=== PATIENT | female | born 1980 | race American Indian/Alaskan Native ===

== ENCOUNTER 2019-10-17 11:02 | Emergency (ER) | payer SELFPAY ==
[2019-10-17 11:30] VITALS: BP 118/79
[2019-10-17] MEDS ORDERED: ACETAMINOPHEN 325 MG TAB PO PRN (11:53)
[2019-10-17] MEDS ORDERED: ONDANSETRON 4 MG ODT TAB PO PRN (11:53)
--- NOTE | 2019-10-17 11:55 | Emergency Department Report ---
Chief Complaint: Abdominal Pain Stated Complaint: 11 WKS /ABD SEVERE PAIN - HPI History of Present Illness: 39 y/o female distant history of appendectomy, thinks shes 11 weeks , no prenantl care, p/w lower abd pain cramping nausea labs ua ultrasound apap, and zofran reassess ft Vital Signs 10/17/19 11:14 Temperature 98.2 F Pulse Rate 92 H Respiratory 20 Rate Blood Pressure 118/79 O2 Sat by Pulse 99 Oximetry - Exam Vital Signs: Vital Signs 10/17/19 11:14 Temperature 98.2 F Pulse Rate 92 H Respiratory 20 Rate Blood Pressure 118/79 O2 Sat by Pulse 99 Oximetry MSE screening note: Focused history and physical exam performed. Due to findings the following was ordered: ED Disposition for MSE Condition: Stable Instructions: Abdominal Pain (ED)
[2019-10-17 12:42] LABS: Basophils # (Auto) 0.1 K/mm3 (0.0-0.1); Eosinophils # (Auto) 0.1 K/mm3 (0.0-0.4); Eosinophils % (Auto) 1.4 % (0.0-4.3); Hematocrit 38.9 % (30.3-42.9); Hemoglobin 13.5 gm/dl (10.1-14.3); Mean Corpuscular HGB Conc 35 % (30-34); Mean Corpuscular Volume 96 fl (79-97); Monocytes # (Auto) 0.5 K/mm3 (0.0-0.8); Monocytes % (Auto) 7.3 % (0.0-7.3); Platelet Count 306 K/mm3 (140-440); Red Blood Count 4.05 M/mm3 (3.65-5.03); Red Cell Distribution Width 12.5 % (13.2-15.2)
[2019-10-17 13:12] LABS: Bilirubin,Urine NEG (Negative); Blood,Urine NEG (Negative); Color,Urine Yellow (Yellow); Protein,Urine <15 mg/dL mg/dL (Negative); Urobilinogen,Urine < 2.0 mg/dL (<2.0)
[2019-10-17 13:15] LABS: Albumin 4.1 g/dL (3.9-5); BUN/Creatinine Ratio 8; Blood Urea Nitrogen 4 mg/dL (7-17); Calcium 10.1 mg/dL (8.4-10.2); Hemolysis Index 96
--- NOTE | 2019-10-17 13:23 | Ultrasound Report ---
ULTRASOUND OBSTETRIC INDICATION: Lower abdominal pain. Estimated clinical age of 10 weeks, 1 day. TECHNIQUE: Transabdominal and Transvaginal. COMPARISON: None available. FINDINGS: GESTATIONAL SAC: Well-defined oval shape and intrauterine in location. YOLK SAC: No significant abnormality. EMBRYO/FETUS: No significant abnormality. - [place]-Rump Length = 3.88 cm = 10 weeks, 5 day(s). - Heart Rate = 164 beats per minute. ADNEXA: The left ovary is unremarkable. A right ovarian cyst measures 2.9 x 1.7 cm. FREE FLUID: None. ADDITIONAL FINDINGS: There is a small area of probable subchorionic hemorrhage measuring up to 1.7 cm . A probable intramural fibroid located along the uterine body measures 1.7 x 1.1 cm. IMPRESSION: 1. Single, living intrauterine with estimated sonographic age of 10 weeks, 5 day(s). 2. Probable small area of subchorionic hemorrhage as above. 3. Additional findings as above. Signer Name: Carlos Nguyen MD Signed: 10/17/2019 1:19 PM Workstation Name: [id number]
--- NOTE | 2019-10-17 13:23 | Ultrasound Report ---
ULTRASOUND OBSTETRIC INDICATION: Lower abdominal pain. Estimated clinical age of 10 weeks, 1 day. TECHNIQUE: Transabdominal and Transvaginal. COMPARISON: None available. FINDINGS: GESTATIONAL SAC: Well-defined oval shape and intrauterine in location. YOLK SAC: No significant abnormality. EMBRYO/FETUS: No significant abnormality. - [place]-Rump Length = 3.88 cm = 10 weeks, 5 day(s). - Heart Rate = 164 beats per minute. ADNEXA: The left ovary is unremarkable. A right ovarian cyst measures 2.9 x 1.7 cm. FREE FLUID: None. ADDITIONAL FINDINGS: There is a small area of probable subchorionic hemorrhage measuring up to 1.7 cm . A probable intramural fibroid located along the uterine body measures 1.7 x 1.1 cm. IMPRESSION: 1. Single, living intrauterine with estimated sonographic age of 10 weeks, 5 day(s). 2. Probable small area of subchorionic hemorrhage as above. 3. Additional findings as above. Signer Name: Carlos Nguyen MD Signed: 10/17/2019 1:19 PM Workstation Name: [id number]
[2019-10-17 13:24] LABS: Mucus,Urine Rare /HPF
[2019-10-17 13:27] LABS: Alanine Aminotransferase 13 units/L (7-56)
[2019-10-17] MEDS ORDERED: SODIUM CHLORIDE 0.9% 1000 ML 1,000 ML IV ONE (16:17)
--- NOTE | 2019-10-17 17:34 | Emergency Department Report ---
ED General Adult HPI - General Chief complaint: Abdominal Pain Stated complaint: 11 WKS /ABD SEVERE PAIN Time Seen by Provider: 10/17/19 16:07 Source: patient Mode of arrival: Wheelchair Limitations: No Limitations - History of Present Illness Initial comments: patient is a 39-year-old female presents emergency room with complaints of suprapubic abdominal pain that began 2 days ago. She has associated nausea and vomiting. She states that she has not been able tolerate by mouth intake. Patient is currently . She has not seen an [facility]. She has not had her confirmed or received care. She denies any fever, vaginal discharge, vaginal bleeding, urinary symptoms, diarrhea. she has not been taking any nausea medication. she denies any PMHx. she denies any allergies to meds. [facility] August 07, 2020. /P:3/A:3 - Related Data Previous Rx's Medication Instructions Recorded Last Taken Type Acetaminophen [Tylenol] 650 mg PO Q8HR PRN #20 capsule 10/17/19 Unknown Rx Ondansetron [Zofran Odt] 4 mg PO Q8HR PRN #14 tab.rapdis 10/17/19 Unknown Rx Allergies Allergy/AdvReac Type Severity Reaction Status Date / Time No Known Allergies Allergy Unverified 10/17/19 11:07 ED Review of Systems ROS: Stated complaint: 11 WKS /ABD SEVERE PAIN Other details as noted in HPI Comment: All other systems reviewed and negative ED Past Medical Hx - Past Medical History Previous Medical History?: No - Surgical History Past Surgical History?: No - Social History Smoking Status: Never Smoker Substance Use Type: Alcohol - Medications Home Medications: Home Medications Medication Instructions Recorded Confirmed Last Taken Type Acetaminophen [Tylenol] 650 mg PO Q8HR PRN #20 capsule 10/17/19 Unknown Rx Ondansetron [Zofran Odt] 4 mg PO Q8HR PRN #14 tab.rapdis 10/17/19 Unknown Rx ED Physical Exam - General Limitations: No Limitations General appearance: alert, in no apparent distress - Head Head exam: Present: atraumatic, normocephalic - Eye Eye exam: Present: normal appearance - ENT ENT exam: Present: mucous membranes dry - Respiratory Respiratory exam: Present: normal lung sounds bilaterally. Absent: respiratory distress, wheezes, rales, rhonchi, stridor, chest wall tenderness, accessory muscle use, decreased breath sounds, prolonged expiratory - Cardiovascular Cardiovascular Exam: Present: regular rate, normal rhythm, normal heart sounds. Absent: systolic murmur, diastolic murmur, rubs, gallop - GI/Abdominal GI/Abdominal exam: Present: soft, normal bowel sounds. Absent: distended, tenderness, guarding, rebound, rigid - Back Exam Back exam: Absent: CVA tenderness (R), CVA tenderness (L) - Neurological Exam Neurological exam: Present: alert, oriented X3 - Psychiatric Psychiatric exam: Present: normal affect, normal mood - Skin Skin exam: Present: warm, dry, intact ED Course Vital Signs 10/17/19 10/17/19 11:14 19:10 Temperature 98.2 F Pulse Rate 92 H 85 Respiratory 20 16 Rate Blood Pressure 118/79 O2 Sat by Pulse 99 100 Oximetry ED Medical Decision Making - Lab Data Result diagrams: 10/17/19 12:01 10/17/19 12:01 Lab Results 10/17/19 10/17/19 10/17/19 Range/Units 12:01 12:01 12:01 WBC 6.3 (4.5-11.0) K/mm3 RBC 4.05 (3.65-5.03) M/mm3 Hgb 13.5 (10.1-14.3) gm/dl Hct 38.9 (30.3-42.9) % MCV 96 (79-97) fl MCH 33 H (28-32) pg MCHC 35 H (30-34) % RDW 12.5 L (13.2-15.2) % Plt Count 306 (140-440) K/mm3 Lymph % (Auto) 31.0 (13.4-35.0) % [place] % (Auto) 7.3 (0.0-7.3) % Eos % (Auto) 1.4 (0.0-4.3) % Baso % (Auto) 1.0 (0.0-1.8) % Lymph # 2.0 (1.2-5.4) K/mm3 [place] # 0.5 (0.0-0.8) K/mm3 Eos # 0.1 (0.0-0.4) K/mm3 Baso # 0.1 (0.0-0.1) K/mm3 Seg Neutrophils % 59.3 (40.0-70.0) % Seg Neutrophils # 3.8 (1.8-7.7) K/mm3 Sodium 129 L (137-145) mmol/L Potassium 4.2 (3.6-5.0) mmol/L Chloride 94.2 L (98-107) mmol/L Carbon Dioxide 21 L (22-30) mmol/L Anion Gap 18 mmol/L BUN 4 L (7-17) mg/dL Creatinine 0.5 L (0.7-1.2) mg/dL Estimated GFR > 60 ml/min BUN/Creatinine Ratio 8 % Glucose 100 (65-100) mg/dL Calcium 10.1 (8.4-10.2) mg/dL Magnesium 2.00 (1.7-2.3) mg/dL Total Bilirubin 0.50 (0.1-1.2) mg/dL AST 23 (5-40) units/L ALT 13 (7-56) units/L Alkaline Phosphatase 71 (35-129) units/L Total Creatine Kinase 70 (30-135) units/L Total Protein 8.2 (6.3-8.2) g/dL Albumin 4.1 (3.9-5) g/dL Albumin/Globulin Ratio 1.0 % HCG, Quant [id number] H (0-4) mIU/mL Urine Color (Yellow) Urine Turbidity (Clear) Urine pH (5.0-7.0) Ur Specific [place] (1.003-1.030) Urine Protein (Negative) mg/dL Urine Glucose (UA) (Negative) mg/dL Urine Ketones (Negative) mg/dL Urine Blood (Negative) Urine Nitrite (Negative) Urine Bilirubin (Negative) Urine Urobilinogen (<2.0) mg/dL Ur Leukocyte Esterase (Negative) Urine WBC (Auto) (0.0-6.0) /HPF Urine RBC (Auto) (0.0-6.0) /HPF U Epithel Cells (Auto) (0-13.0) /HPF Urine Mucus /HPF Blood Type Antibody Screen 10/17/19 10/17/19 Range/Units 12:02 12:36 WBC (4.5-11.0) K/mm3 RBC (3.65-5.03) M/mm3 Hgb (10.1-14.3) gm/dl Hct (30.3-42.9) % MCV (79-97) fl MCH (28-32) pg MCHC (30-34) % RDW (13.2-15.2) % Plt Count (140-440) K/mm3 Lymph % (Auto) (13.4-35.0) % [place] % (Auto) (0.0-7.3) % Eos % (Auto) (0.0-4.3) % Baso % (Auto) (0.0-1.8) % Lymph # (1.2-5.4) K/mm3 [place] # (0.0-0.8) K/mm3 Eos # (0.0-0.4) K/mm3 Baso # (0.0-0.1) K/mm3 Seg Neutrophils % (40.0-70.0) % Seg Neutrophils # (1.8-7.7) K/mm3 Sodium (137-145) mmol/L Potassium (3.6-5.0) mmol/L Chloride (98-107) mmol/L Carbon Dioxide (22-30) mmol/L Anion Gap mmol/L BUN (7-17) mg/dL Creatinine (0.7-1.2) mg/dL Estimated GFR ml/min BUN/Creatinine Ratio % Glucose (65-100) mg/dL Calcium (8.4-10.2) mg/dL Magnesium (1.7-2.3) mg/dL Total Bilirubin (0.1-1.2) mg/dL AST (5-40) units/L ALT (7-56) units/L Alkaline Phosphatase (35-129) units/L Total Creatine Kinase (30-135) units/L Total Protein (6.3-8.2) g/dL Albumin (3.9-5) g/dL Albumin/Globulin Ratio % HCG, Quant (0-4) mIU/mL Urine Color Yellow (Yellow) Urine Turbidity Clear (Clear) Urine pH 6.0 (5.0-7.0) Ur Specific [place] 1.019 (1.003-1.030) Urine Protein <15 mg/dl (Negative) mg/dL Urine Glucose (UA) Neg (Negative) mg/dL Urine Ketones Tr (Negative) mg/dL Urine Blood Neg (Negative) Urine Nitrite Neg (Negative) Urine Bilirubin Neg (Negative) Urine Urobilinogen < 2.0 (<2.0) mg/dL Ur Leukocyte Esterase Neg (Negative) Urine WBC (Auto) 2.0 (0.0-6.0) /HPF Urine RBC (Auto) 6.0 (0.0-6.0) /HPF U Epithel Cells (Auto) 5.0 (0-13.0) /HPF Urine Mucus Rare /HPF Blood Type B POSITIVE Antibody Screen Negative - Radiology Data Radiology results: report reviewed ULTRASOUND OBSTETRIC INDICATION: Lower abdominal pain. Estimated clinical age of 10 weeks, 1 day. TECHNIQUE: Transabdominal and Transvaginal. COMPARISON: None available. FINDINGS: GESTATIONAL SAC: Well-defined oval shape and intrauterine in location. YOLK SAC: No significant abnormality. EMBRYO/FETUS: No significant abnormality. - [place]-Rump Length = 3.88 cm = 10 weeks, 5 day(s). - Heart Rate = 164 beats per minute. ADNEXA: The left ovary is unremarkable. A right ovarian cyst measures 2.9 x 1.7 cm. FREE FLUID: None. ADDITIONAL FINDINGS: There is a small area of probable subchorionic hemorrhage measuring up to 1.7 cm. A probable intramural fibroid located along the uterine body measures 1.7 x 1.1 cm. IMPRESSION: 1. Single, living intrauterine with estimated sonographic age of 10 weeks, 5 day(s). 2. Probable small area of subchorionic hemorrhage as above. 3. Additional findings as above. Signer Name: Carlos Nguyen MD Signed: 10/17/2019 1:19 PM Workstation Name: [id number] Transcribed By: [place] Dictated By: Carlos Nguyen MD Electronically Authenticated By: Carlos Nguyen MD Signed Date/Time: 10/17/19 1319 DD/ 1315 TD/TT: - Medical Decision Making patient is a 39-year-old female presents emergency room with complaints of suprapubic abdominal pain that began 2 days ago. She has associated nausea and vomiting. She states that she has not been able tolerate by mouth intake. Patient is currently . She has not seen an [facility]. She has not had her confirmed or received care. She denies any fever, vaginal discharge, vaginal bleeding, urinary symptoms, diarrhea. she has not been taking any nausea medication. she denies any PMHx. she denies any allergies to meds. [facility] August 07, 2020. /P:3/A:3. vitals are normal. on exam: no abd TTP, no guarding, no rebound. CBC normal. hcg quant is [id number]. BMP shows evidence of dehydration. UA is normal. pt is Rh positive. US OB shows 1. Single, living intrauterine with estimated sonographic age of 10 weeks, 5 day(s). 2. Probable small area of subchorionic hemorrhage as above. 3. Additional findings as above. Patient given IV fluids, Zofran, Tylenol and symptoms improved and she was feeling much better. Patient was able to eat and drink while in the emergency department with no issues had no further episodes of nausea or vomiting. Discussed all results with patient. Advised patient that subchorionic hemorrhage and ovarian cyst would need to be monitored by an [facility]. Stressed the importance of patient following up with [facility] to receive care. pt given prescription for zofran and tylenol. advised pt please take medication as prescribed. Please take an [id number] tablet daily. Please follow-up with a [facility] in the next 2-3 days. Return to the emergency room immediately for any new or worsening symptoms. - Differential Diagnosis IUP, ectopic, subchorionic hemorrhage, ovarian cyst, molar Critical care attestation.: If time is entered above; I have spent that time in minutes in the direct care of this critically ill patient, excluding procedure time. ED Disposition Clinical Impression: Abdominal pain in Qualifiers: Trimester: first trimester Qualified Code(s): O26.891 - Other specified related conditions, first trimester Nausea and vomiting Qualifiers: Vomiting type: unspecified Vomiting Intractability: non-intractable Qualified Code(s): R11.2 - Nausea with vomiting, unspecified Subchorionic hemorrhage Qualifiers: Fetus number: single or unspecified fetus Trimester: first trimester Qualified Code(s): O41.8X10 - Other specified disorders of amniotic fluid and membranes, first trimester, not applicable or unspecified Ovarian cyst Qualifiers: Laterality: right Qualified Code(s): N83.201 - Unspecified ovarian cyst, right side Uterine fibroid Qualifiers: Uterine leiomyoma location: intramural Qualified Code(s): D25.1 - Intramural leiomyoma of uterus Disposition: DC-01 TO HOME OR SELFCARE Is pt being admited?: No Does the pt Need Aspirin: No Condition: Stable Instructions: Ovarian Cyst (ED), Uterine Fibroids (ED), Acute Nausea and Vomiting (ED), Abdominal Pain in (ED) Additional Instructions: please take medication as prescribed. Please take an [id number] tablet daily. Please follow-up with a [facility] in the next 2-3 days. [facility] room immediately for any new or worsening symptoms. Prescriptions: Acetaminophen [Tylenol] 650 mg PO Q8HR PRN #20 capsule PRN Reason: pain Ondansetron [Zofran Odt] 4 mg PO Q8HR PRN #14 tab.rapdis PRN Reason: Nausea And Vomiting Referrals: [facility] [Provider Group] - 2-3 Days [facility] [Provider Group] - 2-3 Days [facility] [Provider Group] - 2-3 Days [facility] [Outside] - 2-3 Days Time of Disposition: 18:27 Print Language: BULGARIAN
== END 2019-10-17 19:10 | disposition home or self-care (01) ==
LOC: ED 11:02
DX: O34.81 Maternal care for other abnormalities of pelvic organs, first trimester (principal); N83.201 Unspecified ovarian cyst, right side; O34.11 Maternal care for benign tumor of corpus uteri, first trimester; O41.8X90 Other specified disorders of amniotic fluid and membranes, unspecified trimester, not applicable or unspecified; O21.8 Other vomiting complicating pregnancy; Z3A.10 10 weeks gestation of pregnancy
CPT/HCPCS: 36415; 76801; 76817; 80053; 81001; 82550; 83735; 84702; 85025; 86850; 86900; 86901; 96360; 99284; J7030; Q0162